=== PATIENT | female | born 1995 | race Two or more races ===

== ENCOUNTER 2024-11-01 13:56 | Outpatient (CLI) | payer MEDICAID ==
--- NOTE | 2024-11-04 13:58 | DVHSR ---
APPROVED REPORT EXAM: Two-dimensional and M-mode echocardiogram with Doppler and color Doppler. Surgery/Intervention Pacemaker: DIMENSIONS LVDd4.6 (3.8-5.7cm)LA (2D)3.2 (1.9-4.0cm)Aortic Root3.1 (2.0-3.7cm) LVDs3.1 (2.5-4.0cm)LA (MM) (1.9-4.0cm)Aortic Cusp Exc1.8 (1.5-2.0cm) EF (%) 62.0 (55-70%)Rt. Atrium3.5 (1.9-4.0cm)Asc. Aorta cm IVSd0.7 (0.7-1.1cm)RV (D) (1.8-2.4cm) PWd0.7 (0.7-1.1cm) Mitral Valve MitralMitral Stenosis E wave0.90m/sMV Mean GR.mmHg A wave0.70m/sMV Peak GR.mmHg E/A ratio1.32D MVAcm2 Aortic Valve Aortic ValveAortic Stenosis V10.70m/Janice Mean GR.3mmHg V21.20m/Janice Peak GR.6mmHg LVOT Diameter2.2 (1.8-2.4cm)Doppler AVA2.22cm2 Pulmonic Valve V20.50m/s Tricuspid Valve TR Velocity2.20m/s [id number] LEFT VENTRICLE The left ventricle is normal size. The left ventricle is normal in structure and function. The Ejection Fraction is within normal limits. RIGHT VENTRICLE The right ventricle is normal size. ATRIA The left atrial size is normal. The right atrium size is normal. The interatrial septum is intact with no evidence for an atrial septal defect. MITRAL VALVE The mitral valve is normal in structure and function. There is no mitral valve regurgitation noted. PULMONIC VALVE The pulmonic valve is not well visualized. TRICUSPID VALVE The tricuspid valve is grossly normal. AORTIC VALVE The aortic valve opens well. No aortic regurgitation is present. GREAT VESSELS The aortic root is normal size. PERICARDIAL EFFUSION There is no pericardial effusion. Conclusion EF 55%
== END 2024-11-01 17:00 | disposition home or self-care (01) ==
LOC: Rad HDHVI 13:56
PROVIDERS: ATTEND Internal Medicine Cardiovascular Disease
DX: I10 Essential (primary) hypertension (principal)
CPT/HCPCS: 93306

== ENCOUNTER 2024-11-07 00:25 | Inpatient (IN) | payer MEDICAID ==
[2024-11-07] VITALS (7 sets, daily range): BP systolic 94–122; BP diastolic 58–77; PULSE 61–92; RESP 16–18; TEMP 97.9–98.4; O2SAT 97–98
[~2024-11-07] VITALS: Ht 175.3 cm; Wt 106.8 kg
[2024-11-07 02:13] LABS: Basophils # (auto) 0 10 ^3/uL (0-0.2); Basophils % (auto) 0.3 % (0.0-2.0); Eosinophils # (auto) 0.2 10 ^3/uL (0-0.8); Hematocrit 40.6 % (36.0-46.0); Hemoglobin 13.8 g/dL (12.2-16.2); Lymphocytes # (auto) 3.9 10 ^3/uL (0.4-5.4); Lymphocytes % (auto) 35.3 % (10.0-50.0); Mean Corpuscular Hemoglobin 30.8 pg (28.0-32.0); Mean Corpuscular Hgb Conc. 33.9 g/dL (32.0-36.0); Mean Corpuscular Volume 90.7 fL (80.0-100.0); Monocytes # (auto) 0.8 10 ^3/uL (0-1.3); Monocytes % (auto) 6.9 % (0.0-12.0); Neutrophils # (auto) 6.1 10 ^3/uL (1.6-8.6); Neutrophils % (auto) 55.5 % (37.0-80.0); Platelet Count (auto) 256 10^3/uL (140-450); Red Blood Cells 4.48 10^6/uL (4.0-5.20); Red Cell Distribution Width 12.8 % (11.8-14.3)
--- NOTE | 2024-11-07 02:26 | ED.PDOC ---
History of Present Illness HPI Comments 29 y/o F reports on having sudden and unprovoked 3x seizure episodes, today. Last seizure episodes was 1x week ago. She calls today's seizures as 'big' and unusual from her 'small' seizures she has been having, usually, since having a cardiac arrest in 2017. Following with a neurologist, currently, but has never been, formally, diagnosed with a seizure disorder. She is, however, taking Depakote, Metoprolol, and escitalopram. Hx of long QT syndrome, AFIB, and AAtach. No alcohol or other seizures inducing triggers reported. She started taking magnesium 3x days ago. At time of triage, patient describes having a sharp headache generalized weakness, with associated difficulty walking, after her seizure episodes. Chief Complaint: Seizure Time Seen by MD: 01:30 Reviewed Notes: Nurses Notes, Medications, Allergies Allergies: Coded Allergies: Diphenhydramine (Verified Allergy, Unknown, 11/07/24) Information Source: Patient Mode of Arrival: Wheelchair Severity: Moderate Timing: Hours Duration: Minutes Prehospital treatment: None Review of Systems: REVIEW OF SYSTEMS: No fever, no chills, or fatigue HEENT: No sore throat, no earache, no congestion, no neck pain. Cardiac: No chest pain. No palpitations. Lungs: No shortness of breath, no cough. GI: No nausea, no vomiting, no diarrhea, no constipation, no abdominal pain : No dysuria, frequency, or urgency. No hematuria. Musculoskeletal: No joint pain , no joint swelling, no extremity edema. Skin: No rash, no itching. Neuro: Seizures. headache, weakness, no dizziness Vital Signs Vital Signs Date Time Temp Pulse Resp B/P (MAP) Pulse Ox O2 Delivery O2 Flow Rate FiO2 11/07/24 03:10 98.5 70 16 109/76 (87) 98 98.5 11/07/24 03:10 Room Air* 0 21 Physical Exam General: Awake, alert and oriented. No acute distress. Skin: Skin in warm, dry and intact. Appropriate color for ethnicity. HEENT: The head is normocephalic and atraumatic. Conjunctivae are clear without exudates or hemorrhage. Sclera is non-icteric. EOM are intact. No signs of nysta gmus. Eyelids are normal in appearance without swelling or lesions. Oral mucosa is pink and moist. PERRL. Neck: The neck is supple with normal range of motion. No JVD. Cardiac: Heart rate and rhythm are normal. No murmurs, gallops, or rubs are auscultated. Respiratory: No signs of respiratory distress. Lung sounds are clear in all lobes bilaterally without rales, rhonchi, or wheezes. Abdominal: Abdomen is soft, non-tender without distention, guarding or rigidity. Bowel sounds are present and normoactive in all four quadrants. Extremities: Upper and lower extremities are atraumatic in appearance without deformity or edema. Neurological: The patient is awake, alert and oriented to person, place, and time with normal speech. Speech is clear. There is no facial asymmetry. Normal [id number] test. Generalized weakness to bilateral lower extremities when transitioning from seated to standing position. Psychiatric: Appropriate mood and affect. Good judgement and insight. Past Medical History PAST MEDICAL HISTORY: AFIB Past Medical History (Other): long QT syndrome and AAtach Surgical History: Denies all surgeries FUR LINER History: Denies all FUR LINER Hx Family History Family History: Unknown Social History Smoker: Non-Smoker Alcohol: Denies ETOH Use Drugs: Denies Drug Use Lives In: Home Was a procedure done? Was a procedure done?: No Differential Dx Considerations may include: Differential diagnoses considered include but are not limited to cardiac structural disease, arrhythmia, acute coronary syndrome, orthostasis, pulmonary embolism, dissection, seizure, basilar stroke, seizures, pseudoseizures, other. X-Ray, Labs, Meds, VS Vital Signs Date Time Temp Pulse Resp B/P (MAP) Pulse Ox O2 Delivery O2 Flow Rate FiO2 11/07/24 03:10 98.5 70 16 109/76 (87) 98 98.5 11/07/24 03:10 70 16 98 Room Air* 0 21 11/07/24 00:48 98.3 85 20 135/85 (102) 95 98.3 Lab Test 11/07/24 03:16 11/07/24 01:47 11/07/24 00:45 Range/Units POC Glucose 94 70-106 mg/dl White Blood Count 11.0 H 4.4-10.8 10^3/uL Red Blood Count 4.48 4.0-5.20 10^6/uL Hemoglobin 13.8 12.2-16.2 g/dL Hematocrit 40.6 36.0-46.0 % Mean Corpuscular Volume 90.7 80.0-100.0 fL Mean Corpuscular Hemoglobin 30.8 28.0-32.0 pg Mean Corpuscular Hemoglobin Concent 33.9 32.0-36.0 g/dL Red Cell Distribution Width 12.8 11.8-14.3 % Platelet Count 256 140-450 10^3/uL Mean Platelet Volume 8.6 6.9-10.8 fL Neutrophils (%) (Auto) 55.5 37.0-80.0 % Lymphocytes (%) (Auto) 35.3 10.0-50.0 % Monocytes (%) (Auto) 6.9 0.0-12.0 % Eosinophils (%) (Auto) 2.0 0.0-7.0 % Basophils (%) (Auto) 0.3 0.0-2.0 % Neutrophils # (Auto) 6.1 1.6-8.6 10 ^3/uL Lymphocytes # (Auto) 3.9 0.4-5.4 10 ^3/uL Monocytes # (Auto) 0.8 0-1.3 10 ^3/uL Eosinophils # (Auto) 0.2 0-0.8 10 ^3/uL Basophils # (Auto) 0 0-0.2 10 ^3/uL Nucleated Red Blood Cells 0.0 % Sodium Level 143 136-145 mmol/L Potassium Level 4.3 3.5-5.1 mmol/L Chloride Level 108 H 98-107 mmol/L Carbon Dioxide Level 26 20-31 mmol/L Anion Gap 9 5-15 Blood Urea Nitrogen 11 9-23 mg/dL Creatinine 0.86 0.550-1.02 mg/dL Glomerular Filtration Rate Calc 94 >90 mL/min BUN/Creatinine Ratio 12.8 10.0-20.0 Serum Glucose 97 74-106 mg/dL Calcium Level 9.4 8.7-10.4 mg/dL Total Bilirubin 0.2 0.2-1.0 mg/dL Aspartate Amino Transferase (AST) 14 13-40 U/L Alanine Aminotransferase (ALT) < 9 7-40 U/L Alkaline Phosphatase 64 46-116 U/L Total Protein 7.1 5.7-8.2 g/dL Albumin 4.2 3.2-4.8 g/dL Levetiracetam Level Pending Urine Color Yellow Yellow Urine Clarity Clear Clear Urine pH 6.0 5.0-9.0 Urine Specific [place] 1.029 1.001-1.035 Urine Protein Negative Negative Urine Ketones Trace Negative Urine Blood Negative Negative /uL Urine Nitrite Negative Negative Urine Bilirubin Negative Negative Urine Urobilinogen Normal Negative mg/dL Urine Leukocyte Esterase Negative Negative /uL Urine RBC 2 0 - 4 /hpf Urine Microscopic WBC 4 0-5 /HPF Urine Squamous Epithelial Cells Few <5 /hpf Urine Bacteria Few H None Seen /hpf Urine Mucus Few None Seen Urine Sperm Present None Seen /hpf Urine Glucose Normal Normal mg/dL Urine Test Negative Negative Urine Opiates Screen Neg NEGATIVE Urine Fentanyl Screen Neg NEGATIVE Urine Barbiturates Screen Neg NEGATIVE Urine Phencyclidine Screen Neg NEGATIVE Urine Amphetamines Screen Neg NEGATIVE Urine Benzodiazepines Screen Neg NEGATIVE Urine Cocaine Screen Neg NEGATIVE Urine Cannabinoids Screen Neg NEGATIVE Current Medications Medications (Trade) Dose Ordered Sig/Los Route Start Time Stop Time Status Last Admin Sodium Chloride 1,000 ml @ 1,000 mls/hr Q1H ONCE IV 11/07/24 01:45 11/07/24 02:44 DC 11/07/24 03:13 [place] [id number] Ph: [phone] DIAGNOSTIC IMAGING Diagnostic Imaging Report : [id number] Signed PATIENT: PARMJIT BOX ACCT: [id number] UNIT: [id number] : 1995 LOC: ER ROOM / BED: / AGE / SEX: 29 / F ADM STATUS: REG ER SERVICE 0214 ORDERING PHYSICIAN: DONALD VARGAS MD PROCEDURE(s): HWOCT - HEAD WITHOUT CONTRAST REASON: tirado, seizure ORDER NUMBER(s): [id number], ACCESSION NUMBER(s): [id number] EXAM: CT HEAD WITHOUT CONTRAST INDICATION: tirado, seizure TECHNIQUE: CT of the head without intravenous contrast. Radiation Dose : 1. Head: CT Dose: CTDI volume is 57 mGy. Dose-length product is 1108 mGy*cm The dose indicators for CT are the volume Computed Tomography (CT) Dose Index (CTDIvol) and the Dose Length Product (DLP), and are measured in units of mGy and mGy-cm, respectively. These indicators are not patient dose, but values gene rated from the CT scanner acquisition factors. The report includes radiation exposure data for exposures received during this examination. COMPARISON: None FINDINGS: There is no evidence of acute intracranial hemorrhage, extra-axial collection, mass effect, midline shift, herniation or hydrocephalus. The ventricles, sulci and cisterns are age appropriate. The gale-white differentiation is intact. The visualized paranasal sinuses and mastoid air cells are clear. The surrounding soft tissues and osseous structures are unremarkable. IMPRESSION: No acute intracranial abnormality. Radiation optimization: All CT scans at this facility use at least one of these dose optimization techniques: automated exposure control mA and/or kV adjustment per patient size (includes targeted exams where dose is matched to clinical indication) or iterative reconstruction. ATED BY: YOGESH BUCIO MD DICTATED DATE/TIME: 11/07/24405 SIGNED BY: YOGESH BUCIO MD SIGNED DATE/TIME: 11/07/24405 CC: Time of 1ST Reevaluation: 02:00 Reevaluation 1ST: Unchanged Patient Education/Counseling: Need For Follow Up Family Education/Counseling: No Family Present Departure 1 Departure Time of Disposition: 04:24 Impression: Primary Impression: Seizure Disposition: 09 ADMITTED INPATIENT Condition: Stable Comments 29-year-old female with a multiple seizures today, continues to complain of generalized weakness, difficulty with ambulation after seizure and after ED observation. One witnessed seizure in triage terminated by sternal rub by nurse. Critical Care Note Critical Care Time?: No Stability Stability form required: No Heart Score Heart Score: Heart Score Response (Comments) Value History N/A 0 EKG N/A 0 Age N/A 0 Risk Factors N/A 0 Troponin N/A 0 Total 0 I personally scribed for DONALD VARGAS MD ([email or web address]) on 11/07/24 at 02:26. Electronically submitted by Ace Scott ([email or web address]). I personally scribed for DONALD VARGAS MD ([email or web address]) on 11/07/24 at 02:35. Electronically submitted by Ace Scott ([email or web address]). I personally scribed for DONALD VARGAS MD ([email or web address]) on 11/07/24 at 04:20. Electronically submitted by Ace Scott ([email or web address]). DONALD VARGAS MD Nov 07, 2024 02:26
[2024-11-07 02:35] LABS: Albumin 4.2 g/dL (3.2-4.8); Alkaline Phosphatase 64 U/L (46-116); Anion Gap 9 (5-15); Aspartate Aminotransferase 14 U/L (13-40); BUN/Creatinine Ratio 12.8 (10.0-20.0); Blood Urea Nitrogen 11 mg/dL (9-23); Calcium 9.4 mg/dL (8.7-10.4); Carbon Dioxide 26 mmol/L (20-31); Glucose 97 mg/dL (74-106); Potassium 4.3 mmol/L (3.5-5.1); Sodium 143 mmol/L (136-145); Total Protein 7.1 g/dL (5.7-8.2)
[2024-11-07 02:36] LABS: Alanine Aminotransferase < 9 U/L (7-40); Bilirubin, Total 0.2 mg/dL (0.2-1.0); Chloride 108 mmol/L (98-107)
[2024-11-07] MEDS: SODIUM CHLORIDE 0.9% 1,000 ML IV ONE (03:13)
[2024-11-07 03:22] LABS: Barbiturate Scree,Urine Neg (NEGATIVE)
[2024-11-07 03:26] LABS: Amphetamine Screen, Urine Neg (NEGATIVE); Benzodiazephine Screen, Urine Neg (NEGATIVE); Cannabinoid Screen, Urine Neg (NEGATIVE); Cocaine Screen, Urine Neg (NEGATIVE); Opiate Scree,Urine Neg (NEGATIVE); Phencyclidine Screen, Urine Neg (NEGATIVE)
[2024-11-07 03:31] LABS: Urine Bacteria FEW /hpf (None Seen); Urine Blood Negative /uL (Negative); Urine Clarity Clear (Clear); Urine Color Yellow (Yellow); Urine Mucus FEW (None Seen); Urine Protein, UAD Negative (Negative); Urine Specific Gravity 1.029 (1.001-1.035); Urine Sperm PRESENT /hpf (None Seen); Urine Squamous Epithelial Cell FEW /hpf (<5); Urine Urobilinogen Normal (Negative); Urine WBC 4 /HPF (0-5)
--- NOTE | 2024-11-07 04:08 | DVH ---
EXAM: CT HEAD WITHOUT CONTRAST INDICATION: tirado, seizure TECHNIQUE: CT of the head without intravenous contrast. Radiation Dose : 1. Head: CT Dose: CTDI volume is 57 mGy. Dose-length product is 1108 mGy*cm The dose indicators for CT are the volume Computed Tomography (CT) Dose Index (CTDIvol) and the Dose Length Product (DLP), and are measured in units of mGy and mGy-cm, respectively. These indicators are not patient dose, but values generated from the CT scanner acquisition factors. The report includes radiation exposure data for exposures received during this examination. COMPARISON: None FINDINGS: There is no evidence of acute intracranial hemorrhage, extra-axial collection, mass effect, midline s hift, herniation or hydrocephalus. The ventricles, sulci and cisterns are age appropriate. The gale-white differentiation is intact. The visualized paranasal sinuses and mastoid air cells are clear. The surrounding soft tissues and osseous structures are unremarkable. IMPRESSION: No acute intracranial abnormality. Radiation optimization: All CT scans at this facility use at least one of these dose optimization gely hniques: automated exposure control mA and/or kV adjustment per patient size (includes targeted exam s where dose is matched to clinical indication) or iterative reconstruction.
[2024-11-07] MEDS ORDERED: TEMAZEPAM 15 MG CAP PO PRN (05:00)
[2024-11-07] MEDS ORDERED: MORPHINE SULFATE INJ 2 MG/ml SYRG IV PRN (05:00)
[2024-11-07] MEDS ORDERED: ACETAMINOPHEN 325 MG TAB PO PRN (05:00)
[2024-11-07] MEDS ORDERED: NITROGLYCERIN 0.4 MG SL TAB SL PRN (05:00)
[2024-11-07] MEDS ORDERED: ONDANSETRON HCL 4 MG/2 ML VIAL IV PRN (05:00)
--- NOTE | 2024-11-07 05:08 | DVHHP2 ---
History of Present Illness Reason for Visit: Seizure History of Present Illness 29-year-old female presents for evaluation of seizure activity. Patient reports having three seizures witnessed by her boyfriend today. Denies head trauma, oral trauma or incontinence. Denies chest pain or shortness for breath. No other acute complaints. Past Medical History AFib, atrial tachycardia Past Surgical History AICD Family History Noncontributory Smoke: No ALCOHOL: none Drugs: None Lives: with Family Review of Systems Review of Systems Review of systems are currently negative otherwise addressed in HPI. Allergies: Coded Allergies: Diphenhydramine (Verified Allergy, Unknown, 11/07/24) Medications Current Medications Medications Dose Ordered Sig/Los Route Start Time Stop Time Status Last Admin Dose Admin Divalproex Sodium 500 mg BID PO 11/07/24 10:00 Lorazepam 1 mg Q5MINP PRN IV 11/07/24 05:00 Temazepam 15 mg QHSP PRN PO 11/07/24 05:00 Ondansetron HCl 4 mg Q4HP PRN IV 11/07/24 05:00 Acetaminophen 650 mg Q6HP PRN PO 11/07/24 05:00 Nitroglycerin 0.4 mg Q5MINP PRN SL 11/07/24 05:00 Morphine Sulfate 2 mg Q30M PRN IV 11/07/24 05:00 Metoprolol Succinate 25 mg DAILY PO 11/07/24 10:00 Exam Vital Signs Vital Signs Date Time Temp Pulse Resp B/P (MAP) Pulse Ox O2 Delivery O2 Flow Rate FiO2 11/07/24 03:10 98.5 70 16 109/76 (87) 98 98.5 11/07/24 03:10 Room Air* 0 21 Exam Gen: 29-year-old female in no apparent distress Skin: Warm, dry, normal color and texture, no rash. HEENT: Normocephalic atraumatic, mucous membranes moist and pink. Neck: Cervical and supraclavicular nodes normal without enlargement, trachea is midline, thyroid gland is normal without masses. Pulmonary: Clear to auscultation and percussion bilaterally. Cardiac: Regular rate and rhythm. No murmur Abdomen: Soft, nontender, nondistended, bowel sounds present all 4 quadrants, no guarding, no rigidity, no organomegaly. Extremities: No cyanosis, clubbing, no edema Neuro: Cranial nerves II through XII grossly intact, normal affect and speech, no focal motor deficits. Labs/Xrays ORDERING PHYSICIAN: DONALD VARGAS MD PROCEDURE(s): HWOCT - HEAD WITHOUT CONTRAST REASON: tirado, seizure ORDER NUMBER(s): [id number], ACCESSION NUMBER(s): [id number] EXAM: CT HEAD WITHOUT CONTRAST INDICATION: tirado, seizure TECHNIQUE: CT of the head without intravenous contrast. Radiation Dose : 1. Head: CT Dose: CTDI volume is 57 mGy. Dose-length product is 1108 mGy*cm The dose indicators for CT are the volume Computed Tomography (CT) Dose Index (CTDIvol) and the Dose Length Product (DLP), and are measured in units of mGy and mGy-cm, respectively. These indicators are not patient dose, but values generated from the CT scanner acquisition factors. The report includes radiation exposure data for exposures received during this examination. COMPARISON: None FINDINGS: There is no evidence of acute intracranial hemorrhage, extra-axial collection, mass effect, midline shift, herniation or hydrocephalus. The ventricles, sulci and cisterns are age appropriate. The gale-white differentiation is intact. The visualized paranasal sinuses and mastoid air cells are clear. The surrounding soft tissues and osseous structures are unremarkable. IMPRESSION: No acute intracranial abnormality. Radiation optimization: All CT scans at this facility use at least one of these dose optimization techniques: automated exposure control mA and/or kV adjustment per patient size (includes targeted exams where dose is matched to clinical indication) or iterative reconstruction. Labs Test 11/07/24 03:16 11/07/24 01:47 11/07/24 00:45 Range/Units POC Glucose 94 70-106 mg/dl White Blood Count 11.0 H 4.4-10.8 10^3/uL Red Blood Count 4.48 4.0-5.20 10^6/uL Hemoglobin 13.8 12.2-16.2 g/dL Hematocrit 40.6 36.0-46.0 % Mean Corpuscular Volume 90.7 80.0-100.0 fL Mean Corpuscular Hemoglobin 30.8 28.0-32.0 pg Mean Corpuscular Hemoglobin Concent 33.9 32.0-36.0 g/dL Red Cell Distribution Width 12.8 11.8-14.3 % Platelet Count 256 140-450 10^3/uL Mean Platelet Volume 8.6 6.9-10.8 fL Neutrophils (%) (Auto) 55.5 37.0-80.0 % Lymphocytes (%) (Auto) 35.3 10.0-50.0 % Monocytes (%) (Auto) 6.9 0.0-12.0 % Eosinophils (%) (Auto) 2.0 0.0-7.0 % Basophils (%) (Auto) 0.3 0.0-2.0 % Neutrophils # (Auto) 6.1 1.6-8.6 10 ^3/uL Lymphocytes # (Auto) 3.9 0.4-5.4 10 ^3/uL Monocytes # (Auto) 0.8 0-1.3 10 ^3/uL Eosinophils # (Auto) 0.2 0-0.8 10 ^3/uL Basophils # (Auto) 0 0-0.2 10 ^3/uL Nucleated Red Blood Cells 0.0 % Sodium Level 143 136-145 mmol/L Potassium Level 4.3 3.5-5.1 mmol/L Chloride Level 108 H 98-107 mmol/L Carbon Dioxide Level 26 20-31 mmol/L Anion Gap 9 5-15 Blood Urea Nitrogen 11 9-23 mg/dL Creatinine 0.86 0.550-1.02 mg/dL Glomerular Filtration Rate Calc 94 >90 mL/min BUN/Creatinine Ratio 12.8 10.0-20.0 Serum Glucose 97 74-106 mg/dL Calcium Level 9.4 8.7-10.4 mg/dL Total Bilirubin 0.2 0.2-1.0 mg/dL Aspartate Amino Transferase (AST) 14 13-40 U/L Alanine Aminotransferase (ALT) < 9 7-40 U/L Alkaline Phosphatase 64 46-116 U/L Total Protein 7.1 5.7-8.2 g/dL Albumin 4.2 3.2-4.8 g/dL Urine Color Yellow Yellow Urine Clarity Clear Clear Urine pH 6.0 5.0-9.0 Urine Specific [place] 1.029 1.001-1.035 Urine Protein Negative Negative Urine Ketones Trace Negative Urine Blood Negative Negative /uL Urine Nitrite Negative Negative Urine Bilirubin Negative Negative Urine Urobilinogen Normal Negative mg/dL Urine Leukocyte Esterase Negative Negative /uL Urine RBC 2 0 - 4 /hpf Urine Microscopic WBC 4 0-5 /HPF Urine Squamous Epithelial Cells Few <5 /hpf Urine Bacteria Few H None Seen /hpf Urine Mucus Few None Seen Urine Sperm Present None Seen /hpf Urine Glucose Normal Normal mg/dL Urine Test Negative Negative Urine Opiates Screen Neg NEGATIVE Urine Fentanyl Screen Neg NEGATIVE Urine Barbiturates Screen Neg NEGATIVE Urine Phencyclidine Screen Neg NEGATIVE Urine Amphetamines Screen Neg NEGATIVE Urine Benzodiazepines Screen Neg NEGATIVE Urine Cocaine Screen Neg NEGATIVE Urine Cannabinoids Screen Neg NEGATIVE Assessment/Plan Assessment/Plan Assessment Breakthrough seizure History of atrial fibrillation Status post AICD Plan Admit the patient to telemetry to the hospitalist Nephrology consultation Seizure precautions in place Resume home medications Continue treatment per orders Plan discussed with: Patient My Orders Orders - RAFAEL PAIGE Procedure Category Date Status Time Divalproex Dr Tablet PHA 11/07/24 In Process (Depakote "Dr" Tabl 10:00 * Neurology Consult CONS 11/07/24 Transmitted 04:49 Basic Metabolic Panel LAB 11/08/24 Verified 04:00 Brain Head Wo Contrast MRI 11/07/24 Logged 04:49 Seizure Precautions SUSANA 11/07/[address] 04:49 Lorazepam 2mg/Ml Inj PHA 11/07/24 In Process (Ativan Inj) 05:00 Admit ADMIT 11/07/24 Transmitted 04:49 Temazepam (Restoril) PHA 11/07/24 In Process 05:00 Ondansetron Hcl PHA 11/07/24 In Process (Zofran) 05:00 Cardiac DIET 11/07/24 Transmitted Diet-2gna,Lofat,Lochol Breakfast Condition: Fair SUSANA 11/07/24 In Process 04:49 Acetaminophen Tablet PHA 11/07/24 In Process (Tylenol Tablet) 05:00 Bedrest With Bathroom SUSANA 11/07/24 In Process Privileg 04:49 Nitroglycerin PHA 11/07/24 In Process Sublingual (Ntrostat 05:00 Morphine Sulfate PHA 11/07/24 In Process Injection 05:00 Stat Ekg For Chest SUSANA 11/07/24 In Process Pain 04:49 Notify Of Changes SUSANA 11/07/24 In Process From Base 04:49 Sourcer For SUSANA 11/07/24 In Process 24 Hours 04:49 Emergency Dysrhythmia SUSANA 11/07/24 In Process Protocol 04:49 Rhythm Strips Once SUSANA 11/07/24 In Process Every Shift 04:49 Oxygen By Nasal RT 11/07/24 Transmitted Cannula 04:49 Metoprolol Xl PHA 11/07/24 In Process Succinate (Toprol Xl) 10:00 Date of Service: Nov 07, 2024 Billing Provider: RAFAEL PAIGE Common Visit Codes: [id number] INP/OBS CARE (HIGH) RAFAEL PAIGE Nov 07, 2024 05:08
[2024-11-07] MEDS ORDERED: ESCI10TA PO (07:53)
[2024-11-07] MEDS ORDERED: DIVA-91 PO (07:53)
[2024-11-07] MEDS ORDERED: METO25TA93 PO (07:53)
[2024-11-07] MEDS ORDERED: DIVA-139 PO (07:53)
[2024-11-07] MEDS: METOPROLOL SUCCINATE XL 50 MG TAB PO SCH (09:05)
[2024-11-07] MEDS: LORazepam 2MG/ML-1ML VIAL IV PRN (12:46)
[2024-11-08] VITALS (8 sets, daily range): BP systolic 98–122; BP diastolic 59–72; PULSE 63–90; RESP 16–65; TEMP 97.8–98.1; O2SAT 94–99
[2024-11-08 07:24] LABS: Chloride 104 mmol/L (98-107); Potassium 3.7 mmol/L (3.5-5.1); Sodium 141 mmol/L (136-145)
[2024-11-08 07:25] LABS: Anion Gap 11 (5-15); Calcium 8.8 mg/dL (8.7-10.4); Carbon Dioxide 26 mmol/L (20-31)
[2024-11-08 07:30] LABS: BUN/Creatinine Ratio 14.3 (10.0-20.0); Blood Urea Nitrogen 13 mg/dL (9-23); Glucose 68 mg/dL (74-106)
--- NOTE | 2024-11-08 13:20 | DVHINCON2 ---
Date of service: Nov 08, 2024 Referring Physician Romeo Reason for Consultation Seizure History of Present Illness Ms. Evans is a 29 years old right-handed female with a history of long QT interval syndrome, atrial fibrillation, depression, anxiety, cardiopulmonary arrest, status post ICD insertion (2016), obesity, she was admitted to the [facility] on 11/07/2024 with a chief company of seizure attack. At this time, she is alert and fully oriented, she provided the following history On 11/07/2024, she had three seizures at home, which started with head pain, head nodding, eye blinking, followed by shaking in both upper extremity, and the next memory was waking up with her by her side taping her she had a seizure in that she had intense shaking all over her body. The patient had three attacks total before she came to the hospital on 11/07/2024, on waking up from each attack, she was able to recognize person around her and place. She had one similar attack last night another one this morning Since 2016, coincidentally after her cardiopulmonary arrest, she a similar attack, and the 2nd one was in 2022. All her attacks were similar to above described ones, and she claims she remembers in most of the attacks, she had shaking all over her body. She has a attacks 2-3 times monthly He saw neurologist in a [facility], recently she sees Dr. Contreras, a local neurologist, she was said to have seizure but the etiology remained unclear, she is on Depakote 750 mg b.i.d. with poor seizure control, she was on Keppra which did not help either She reports weight gain after Depakote treatment UDS, 11/07/2024: Negative Urinalysis, 11/07/2024: WBC: 4, urine leukocyte esterase: Negative CBC, 11/07/2024: Unremarkable CMP, 11/07/2024: Unremarkable CT head, 11/07/2024: No acute intracranial abnormality Past Medical History Long QT syndrome, AFib, depression, anxiety, cardiopulmonary arrest in 2017, obesity Past Surgical History Tubal ligation, AICD implantation (2017, not MRI compatible) Family History: FH: breast cancer G8 MOTHER FH: lung cancer G8 FATHER FHx: supraventricular tachycardia G8 MOTHER Family History Hypertension, thyroid disorder, heart disease, alcoholism, cancer Allergies: Coded Allergies: Diphenhydramine (Verified Allergy, Unknown, 11/07/24) Home Meds Reported Medications Divalproex Sodium (Depakote) 250 Mg Tab, 250 MG PO HS, TAB 11/07/24 Divalproex Sodium (Depakote) 500 Mg Tab, 500 MG PO QAM, TAB 11/07/24 Escitalopram Oxalate (Lexapro) 10 Mg Tab, 1 TAB PO DAILY, #90 TAB 3 Refills 11/07/24 Metoprolol Succinate (Metoprolol Succinate Er) 25 Mg Tab, 1 TAB PO DAILY, #30 TAB 5 Refills 11/07/24 Review of Systems She is not a tobacco smoker, she has no history of alcohol or recreational substance abuse Vital Signs Vital Signs Date Time Temp Pulse Resp B/P (MAP) Pulse Ox O2 Delivery O2 Flow Rate FiO2 11/08/24 10:04 63 107/67 11/08/24 09:10 97.8 18 95 97.8 11/08/24 08:00 Room Air* 0 21 Physical Exam GENERAL EXAM: General: the patient is well developed and nourished. No acute distress. HEENT: Normocephalic, neck is supple, no carotid bruits. No mass. RESPIRATORY: Normal respiratory effort with symmetrical lung expansion. Lungs clear to auscultation. CARDIOVASCULAR: Regular rate and rhythm with no murmurs. S1, S2. ABDOMEN: Soft, nontender, normal bowel sound NEUROLOGICAL: MENTAL STATUS: Awake and alert. Oriented to person, place, time and general circumstances. Able to give personal history. SPEECH, LANGUAGE, HIGHER CORTICAL FUNCTION: no aphasia or dysathria. CRANIAL NERVES: #2: Intact visual guerin to confrontation. The optic discs were sharp. #3,4,6: Pupils are equal, round and reactive. EOMs full and conjugate. No nystagmus. #5: Facial sensation intact in all three divisions bilaterally. Mandibular strength intact. #7: Facial muscles symmetrical and strength intact. #8: Hearing grossly normal to voice. #9,10: Uvula and soft palate rise in the midline. Swallow and voice are normal. #11: Trapezius and sternomastoid strength intact bilaterally. #12: Tongue midline. No fasciculations or atrophy. SENSATION: Sensation to touch and pinprick is normal. MOTOR: Normal tone in the upper and lower extremity. Normal muscle bulk. No fasciculations. No abnormal movements or posturing. Muscle strength of the major groups in the upper extremities is 5/5. Muscle strength of the major groups in the lower extremities is 5/5. REFLEXES: Deep tendon reflexes normal and symmetrical. No pathological reflexes. CEREBELLAR/COORDINATION: Finger to nose and heel to gama are normal bilaterally. GAIT/STATION: deferred. Labs/Diagnostic Data Labs Test 11/08/24 04:18 11/07/24 03:16 11/07/24 01:47 11/07/24 00:45 Range/Units Sodium Level 141 136-145 mmol/L Potassium Level 3.7 3.5-5.1 mmol/L Chloride Level 104 98-107 mmol/L Carbon Dioxide Level 26 20-31 mmol/L Anion Gap 11 5-15 Blood Urea Nitrogen 13 9-23 mg/dL Creatinine 0.91 0.550-1.02 mg/dL Glomerular Filtration Rate Calc 88 >90 mL/min BUN/Creatinine Ratio 14.3 10.0-20.0 Serum Glucose 68 L 74-106 mg/dL Calcium Level 8.8 8.7-10.4 mg/dL POC Glucose 94 70-106 mg/dl White Blood Count 11.0 H 4.4-10.8 10^3/uL Red Blood Count 4.48 4.0-5.20 10^6/uL Hemoglobin 13.8 12.2-16.2 g/dL Hematocrit 40.6 36.0-46.0 % Mean Corpuscular Volume 90.7 80.0-100.0 fL Mean Corpuscular Hemoglobin 30.8 28.0-32.0 pg Mean Corpuscular Hemoglobin Concent 33.9 32.0-36.0 g/dL Red Cell Distribution Width 12.8 11.8-14.3 % Platelet Count 256 140-450 10^3/uL Mean Platelet Volume 8.6 6.9-10.8 fL Neutrophils (%) (Auto) 55.5 37.0-80.0 % Lymphocytes (%) (Auto) 35.3 10.0-50.0 % Monocytes (%) (Auto) 6.9 0.0-12.0 % Eosinophils (%) (Auto) 2.0 0.0-7.0 % Basophils (%) (Auto) 0.3 0.0-2.0 % Neutrophils # (Auto) 6.1 1.6-8.6 10 ^3/uL Lymphocytes # (Auto) 3.9 0.4-5.4 10 ^3/uL Monocytes # (Auto) 0.8 0-1.3 10 ^3/uL Eosinophils # (Auto) 0.2 0-0.8 10 ^3/uL Basophils # (Auto) 0 0-0.2 10 ^3/uL Nucleated Red Blood Cells 0.0 % Total Bilirubin 0.2 0.2-1.0 mg/dL Aspartate Amino Transferase (AST) 14 13-40 U/L Alanine Aminotransferase (ALT) < 9 7-40 U/L Alkaline Phosphatase 64 46-116 U/L Total Protein 7.1 5.7-8.2 g/dL Albumin 4.2 3.2-4.8 g/dL Urine Color Yellow Yellow Urine Clarity Clear Clear Urine pH 6.0 5.0-9.0 Urine Specific [place] 1.029 1.001-1.035 Urine Protein Negative Negative Urine Ketones Trace Negative Urine Blood Negative Negative /uL Urine Nitrite Negative Negative Urine Bilirubin Negative Negative Urine Urobilinogen Normal Negative mg/dL Urine Leukocyte Esterase Negative Negative /uL Urine RBC 2 0 - 4 /hpf Urine Microscopic WBC 4 0-5 /HPF Urine Squamous Epithelial Cells Few <5 /hpf Urine Bacteria Few H None Seen /hpf Urine Mucus Few None Seen Urine Sperm Present None Seen /hpf Urine Glucose Normal Normal mg/dL Urine Test Negative Negative Urine Opiates Screen Neg NEGATIVE Urine Fentanyl Screen Neg NEGATIVE Urine Barbiturates Screen Neg NEGATIVE Urine Phencyclidine Screen Neg NEGATIVE Urine Amphetamines Screen Neg NEGATIVE Urine Benzodiazepines Screen Neg NEGATIVE Urine Cocaine Screen Neg NEGATIVE Urine Cannabinoids Screen Neg NEGATIVE Assessment Grand mal seizure disorder, status epileptics, at least most of the attacks were nonepileptic Anxiety Depression Obesity Plan/Recommendation Monitoring Supportive treatment Telemetry EEG Decrease Depakote to 250 mg b.i.d. (he [facility] and gradually wean off A trial of Trileptal 300 mg b.i.d. and titrated to 600 mg b.i.d. for monotherapylexz Ativan for seizure breakthrough Celexa 10 mg q.d. Ativan for anxiety Follow up with her doctors, including her neurologist on discharge Prognosis: Poor This medical document was created using an electronic medical record system with Dragon computerized dictation system. Although this document has been carefully reviewed, there may still be some phonetic and typographical errors. These areas are purely typographical due to imperfections of the software programs, and do not reflect any compromise in the patient's medical care. Plan discussed with: Patient, Other CARISA FAIR MD Nov 08, 2024 13:19
--- NOTE | 2024-11-08 20:06 | DVHPN2 ---
Subjective No seizures since last night Reviewed: H&P, Labs Changes from previous H/P or p: No Changes Objective Vitals Vital Signs Date Time Temp Pulse Resp B/P (MAP) Pulse Ox O2 Delivery O2 Flow Rate FiO2 11/08/24 17:23 98.1 83 16 110/67 (81) 96 98.1 11/08/24 08:00 Room Air* 0 21 Intake/Output Intake and Output 11/08/24 07:00 Intake Total 1500 ml Balance 1500 ml Intake Oral 1500 ml # Voids 3 General Appearance: Alert, Oriented X3 Lungs: Clear to auscultation Cardiovascular: Regular rate, Normal S1, Normal S2 Medications Current Medications Medications Dose Ordered Sig/Los Route Start Time Stop Time Status Last Admin Dose Admin Lorazepam 1 mg Q5MINP PRN IV 11/07/24 05:00 11/08/24 16:56 1 MG Temazepam 15 mg QHSP PRN PO 11/07/24 05:00 Ondansetron HCl 4 mg Q4HP PRN IV 11/07/24 05:00 Acetaminophen 650 mg Q6HP PRN PO 11/07/24 05:00 Nitroglycerin 0.4 mg Q5MINP PRN SL 11/07/24 05:00 Morphine Sulfate 2 mg Q30M PRN IV 11/07/24 05:00 Metoprolol Succinate 25 mg DAILY PO 11/07/24 10:00 11/08/24 10:04 25 MG Divalproex Sodium 250 mg BID PO 11/08/24 22:00 Oxcarbazepine 300 mg Q12HR PO 11/08/24 22:00 Citalopram Hydrobromide 10 mg DAILY PO 11/09/24 10:00 Lorazepam 0.5 mg Q6HP PRN PO 11/08/24 14:00 Laboratory Results Laboratory Tests 11/07/24 01:47 11/08/24 04:18 Chemistry Test 11/08/24 04:18 Calcium Level 8.8 mg/dL (8.7-10.4) Urinalysis Test 11/07/24 00:45 Urine Color Yellow (Yellow) Urine Clarity Clear (Clear) Urine pH 6.0 (5.0-9.0) Urine Specific [place] 1.029 (1.001-1.035) Urine Protein Negative (Negative) Urine Ketones Trace (Negative) Urine Blood Negative /uL (Negative) Urine Nitrite Negative (Negative) Urine Bilirubin Negative (Negative) Urine Urobilinogen Normal mg/dL (Negative) Urine Leukocyte Esterase Negative /uL (Negative) Urine RBC 2 /hpf (0 - 4) Urine Microscopic WBC 4 /HPF (0-5) Urine Squamous Epithelial Cells Few /hpf (<5) Urine Bacteria Few /hpf (None Seen) H Urine Mucus Few (None Seen) Urine Sperm Present /hpf (None Seen) Urine Glucose Normal mg/dL (Normal) Urine Test Negative (Negative) Assessment/Plan Assessment/Plan Breakthrough seizure History of atrial fibrillation Status post AICD Continue antiepileptics Consult neurology today Plan discussed with: Patient My Orders Orders - ASHLEY PABLO MD Procedure Category Date Status Time Eeg Awake/Sleep/Act EEG 11/08/24 Transmitted 13:06 Date of Service: Nov 08, 2024 Billing Provider: ASHLEY PABLO MD Common Visit Codes: [id number] INP/OBS CARE(HIGH) ASHLEY PABLO MD Nov 08, 2024 20:06
[2024-11-08] MEDS: OXcarbazepine 300 MG TAB PO SCH (21:07)
[2024-11-09] VITALS (8 sets, daily range): BP systolic 105–127; BP diastolic 53–78; PULSE 63–89; RESP 14–18; TEMP 97.8–98.6; O2SAT 96–100
[2024-11-09] MEDS: CITALOPRAM HYDROBR 20 MG TAB PO SCH (09:53)
--- NOTE | 2024-11-09 15:16 | DVHPN2 ---
Subjective No seizures since last night Reviewed: H&P, Labs Changes from previous H/P or p: No Changes Objective Vitals Vital Signs Date Time Temp Pulse Resp B/P (MAP) Pulse Ox O2 Delivery O2 Flow Rate FiO2 11/09/24 12:32 97.8 88 14 127/53 (77) 96 97.8 11/09/24 07:48 Room Air* 0 21 Intake/Output Intake and Output 11/09/24 07:00 Intake Total 700 ml Balance 700 ml Intake Oral 700 ml # Voids 5 # Bowel Movements 1 General Appearance: Alert, Oriented X3 Lungs: Clear to auscultation Cardiovascular: Regular rate, Normal S1, Normal S2 Medications Current Medications Medications Dose Ordered Sig/Lso Route Start Time Stop Time Status Last Admin Dose Admin Lorazepam 1 mg Q5MINP PRN IV 11/07/24 05:00 11/09/24 00:23 1 MG Temazepam 15 mg QHSP PRN PO 11/07/24 05:00 Ondansetron HCl 4 mg Q4HP PRN IV 11/07/24 05:00 Acetaminophen 650 mg Q6HP PRN PO 11/07/24 05:00 Nitroglycerin 0.4 mg Q5MINP PRN SL 11/07/24 05:00 Morphine Sulfate 2 mg Q30M PRN IV 11/07/24 05:00 Metoprolol Succinate 25 mg DAILY PO 11/07/24 10:00 11/09/24 09:53 25 MG Divalproex Sodium 250 mg BID PO 11/08/24 22:00 11/09/24 09:53 250 MG Oxcarbazepine 300 mg Q12HR PO 11/08/24 22:00 11/09/24 09:53 300 MG Citalopram Hydrobromide 10 mg DAILY PO 11/09/24 10:00 11/09/24 09:53 10 MG Lorazepam 0.5 mg Q6HP PRN PO 11/08/24 14:00 Laboratory Results Laboratory Tests 11/07/24 01:47 11/08/24 04:18 Urinalysis Test 11/07/24 00:45 Urine Color Yellow (Yellow) Urine Clarity Clear (Clear) Urine pH 6.0 (5.0-9.0) Urine Specific [place] 1.029 (1.001-1.035) Urine Protein Negative (Negative) Urine Ketones Trace (Negative) Urine Blood Negative /uL (Negative) Urine Nitrite Negative (Negative) Urine Bilirubin Negative (Negative) Urine Urobilinogen Normal mg/dL (Negative) Urine Leukocyte Esterase Negative /uL (Negative) Urine RBC 2 /hpf (0 - 4) Urine Microscopic WBC 4 /HPF (0-5) Urine Squamous Epithelial Cells Few /hpf (<5) Urine Bacteria Few /hpf (None Seen) H Urine Mucus Few (None Seen) Urine Sperm Present /hpf (None Seen) Urine Glucose Normal mg/dL (Normal) Urine Test Negative (Negative) Assessment/Plan Assessment/Plan Breakthrough seizure History of atrial fibrillation Status post AICD Had 3 episodes of seizures last night Continue antiepileptics and changed made by neurology Pending EEG Neurology on consult Plan discussed with: Patient Date of Service: Nov 09, 2024 Billing Provider: ASHLEY PABLO MD Common Visit Codes: [id number] INP/OBS CARE(HIGH) ASHLEY PABLO MD Nov 09, 2024 15:16
--- NOTE | 2024-11-09 21:37 | DVHPN2 ---
Progress Note - Dictate Date Seen: Nov 09, 2024 Medical Necessity Reason Pt with a Central, PICC or Fol: No Subjective Ms. Evans is a 29 years old right-handed female with a history of long QT interval syndrome, atrial fibrillation, depression, anxiety, cardiopulmonary arrest, status post ICD insertion (2016), obesity, she was admitted to the [facility] on 11/07/2024 with a chief company of seizure attack. I have seen and examined the patient, I have talked to her nurse, the patient has had several seizures since last night, he remembers going into seizure but not remember the seizure. She has seizure during the EEG Her nurse witnessed one seizure last night, which was grand mal seizure, her eyes were closed, her vitals, including oxygen saturation were normal during the seizure attack UDS, 11/07/2024: Negative Urinalysis, 11/07/2024: WBC: 4, urine leukocyte esterase: Negative CBC, 11/07/2024: Unremarkable CMP, 11/07/2024: Unremarkable CT head, 11/07/2024: No acute intracranial abnormality vital signs Vital Sign Date Time Temp Pulse Resp B/P (MAP) Pulse Ox O2 Delivery O2 Flow Rate FiO2 11/09/24 16:41 98.1 79 16 105/60 (75) 98 98.1 11/09/24 07:48 Room Air* 0 21 Total Intake and Output 11/08/24 11/08/24 11/09/24 15:00 23:00 07:00 Intake Total 400 ml 300 ml Balance 400 ml 300 ml medications Current Medications Medications Dose Ordered Sig/Los Route Start Time Stop Time Status Last Admin Dose Admin Lorazepam 1 mg Q5MINP PRN IV 11/07/24 05:00 11/09/24 16:00 1 MG Temazepam 15 mg QHSP PRN PO 11/07/24 05:00 Ondansetron HCl 4 mg Q4HP PRN IV 11/07/24 05:00 Acetaminophen 650 mg Q6HP PRN PO 11/07/24 05:00 Nitroglycerin 0.4 mg Q5MINP PRN SL 11/07/24 05:00 Morphine Sulfate 2 mg Q30M PRN IV 11/07/24 05:00 Metoprolol Succinate 25 mg DAILY PO 11/07/24 10:00 11/09/24 09:53 25 MG Divalproex Sodium 250 mg BID PO 11/08/24 22:00 11/09/24 09:53 250 MG Oxcarbazepine 300 mg Q12HR PO 11/08/24 22:00 11/09/24 09:53 300 MG Citalopram Hydrobromide 10 mg DAILY PO 11/09/24 10:00 11/09/24 09:53 10 MG Lorazepam 0.5 mg Q6HP PRN PO 11/08/24 14:00 objective General: the patient is well developed and nourished. No acute distress. MENTAL STATUS: Awake and alert. Oriented to person, place, time and general circumstances. Able to give personal history. SPEECH, LANGUAGE, HIGHER CORTICAL FUNCTION: no aphasia or dysathria. CRANIAL NERVES: Pupils are equal, round and reactive. EOMs full and conjugate. No nystagmus. Facial sensation intact in all three divisions bilaterally. Mandibular strength intact. Facial muscles symmetrical and strength intact. SENSATION: Sensation to touch and pinprick is normal. MOTOR: Normal tone in the upper and lower extremity. Normal muscle bulk. No fasciculations. No abnormal movements or posturing. Muscle strength of the major groups in the upper extremities is 5/5. Muscle strength of the major groups in the lower extremities is 5/5. REFLEXES: Deep tendon reflexes normal and symmetrical. No pathological reflexes. CEREBELLAR/COORDINATION: Finger to nose and heel to gama are normal bilaterally. GAIT/STATION: deferred laboratory and microbiology Laboratory Tests 11/08/24 04:18 11/07/24 01:47 Test 11/08/24 04:18 Range/Units Serum Glucose 68 L 74-106 mg/dL Problem List Grand mal seizure disorder, status epileptics, most of the attacks were nonepileptic Anxiety Depression Obesity Assessment/Plan Monitoring Supportive treatment Telemetry EEG Decrease Depakote to 250 mg b.i.d. (he received 500 mg b.i.d. in the [facility]) and gradually wean off Trileptal 300 mg b.i.d. and titrated to 600 mg b.i.d. for monotherapy Ativan for seizure breakthrough Celexa 10 mg q.d. Ativan for anxiety Follow up with her doctors, including her neurologist on discharge This medical document was created using an electronic medical record system with Dialogication system. Although this document has been carefully reviewed, there may still be some phonetic and typographical errors. These areas are purely typographical due to imperfections of the software programs, and do not reflect any compromise in the patient's medical care. Prognosis poor Plan discussed with: Patient, Other Critical Care Time(min): 35 CARISA FAIR MD Nov 09, 2024 21:37
[2024-11-09] MEDS: LORazepam 0.5 MG TAB PO PRN (22:02)
--- NOTE | 2024-11-09 23:49 | DVHEEG2 ---
Neurology EEG Procedural Note Procedural Note EXAM DATE: 11/10/2023 REFERRING DOCTOR: Dr. Fair TECHNIQUE: Eighteen channels of EEG, 2 channels of EOG, and 1 channel of EKG were recorded using the International 10/20 system. CLINICAL DATA: The patient was referred for an EEG evaluation for the evidence of seizure disorder. MEDICATIONS: See chart BACKGROUND ACTIVITY: While the patient was awake, the background activity consisted of well regulated 9-10 Hz rhythmic waveforms, symmetrically distributed over both posterior quadrants and was reactive to eye opening. During this test, two episodic event captured without correlated electrographic seizure activity in the EEG ACTIVATION: Hyperventilation: Not done Photic Stimulation: No done Sleep: Not seen IMPRESSION: This is a normal EEG. The to captured events during this recording, in the absence of EEG correlation, were nonepileptic The EKG channel showed a regular heart rate of 90 per minute. [place] [address] CARISA FAIR MD Nov 09, 2024 23:49
[2024-11-10] VITALS (8 sets, daily range): BP systolic 93–120; BP diastolic 53–77; PULSE 66–88; RESP 14–20; TEMP 97.5–99; O2SAT 95–97
== END 2024-11-10 17:32 | disposition home or self-care (01) | DRG 53 ==
LOC: ER 00:31 → OVERFLOW 04:49 → TELE-WESTW 06:35
PROVIDERS: ADMIT Hospitalist; ATTEND Hospitalist
DX: G40.401 Other generalized epilepsy and epileptic syndromes, not intractable, with status epilepticus (principal); Z86.74 Personal history of sudden cardiac arrest; E66.9 Obesity, unspecified; I45.81 Long QT syndrome; F32.A Depression, unspecified; I48.91 Unspecified atrial fibrillation; Z68.32 Body mass index [BMI] 32.0-32.9, adult; F41.9 Anxiety disorder, unspecified; Z82.49 Family history of ischemic heart disease and other diseases of the circulatory system; Z80.3 Family history of malignant neoplasm of breast; Z80.1 Family history of malignant neoplasm of trachea, bronchus and lung; Z95.810 Presence of automatic (implantable) cardiac defibrillator; Z88.8 Allergy status to other drugs, medicaments and biological substances
CPT/HCPCS: 36415; 70450; 80048; 80053; 80307; 81001; 81025; 82542; 82962; 85025; 95819; 96361; 96374; G0378